=== PATIENT | female | born 1950 | race Hispanic/Latino ===

== ENCOUNTER 2018-08-20 11:41 | Emergency (ER) | payer OTHER ==
[2018-08-20] MEDS ORDERED: TETANUS/DIPHTHERIA TOXOID [ADULT] 0.5 ML VIAL IM ONE (12:09)
[2018-08-20] MEDS ORDERED: LIDOCAINE HCL MPF 1% 5ML VIAL ONE (12:09)
[2018-08-20] MEDS ORDERED: CEFAZOLIN SODIUM 1 GM VIAL ONE (13:22)
[2018-08-20] MEDS ORDERED: SODIUM CHLORIDE 0.9% 50 ML IV ONE (13:22)
== END 2018-08-20 14:45 | disposition home or self-care (01) ==
LOC: EDH 11:41
DX: S62.665B Nondisplaced fracture of distal phalanx of left ring finger, initial encounter for open fracture (principal); Z88.2 Allergy status to sulfonamides; Z90.710 Acquired absence of both cervix and uterus; X58.XXXA Exposure to other specified factors, initial encounter; Y93.89 Activity, other specified; Y92.89 Other specified places as the place of occurrence of the external cause; Y99.8 Other external cause status
CPT/HCPCS: 29130; 73140; 90471; 90714; 96365; 99284; J0690; J3490

== ENCOUNTER → 2019-06-04 | Outpatient (CLI) | payer MEDICARE | END | disposition home or self-care (01) | LOC: RAH 08:26 | PROVIDERS: ATTEND Internal Medicine | DX: Z12.31 Encounter for screening mammogram for malignant neoplasm of breast (principal) | CPT/HCPCS: 77067 ==

== ENCOUNTER → 2020-06-04 | Outpatient (CLI) | payer MEDICARE | END | disposition home or self-care (01) | LOC: RAH 08:33 | PROVIDERS: ATTEND Internal Medicine | DX: Z12.31 Encounter for screening mammogram for malignant neoplasm of breast (principal) | CPT/HCPCS: 77067 ==

== ENCOUNTER → 2021-06-10 | Outpatient (CLI) | payer MEDICARE | END | disposition home or self-care (01) | LOC: RAH 16:16 | PROVIDERS: ATTEND Internal Medicine | DX: Z12.31 Encounter for screening mammogram for malignant neoplasm of breast (principal); Z00.01 Encounter for general adult medical examination with abnormal findings | CPT/HCPCS: 77067 ==

== ENCOUNTER → 2022-06-29 | Outpatient (CLI) | payer MEDICARE | END | disposition home or self-care (01) | LOC: RAH 14:15 | PROVIDERS: ATTEND Internal Medicine | DX: Z12.31 Encounter for screening mammogram for malignant neoplasm of breast (principal) | CPT/HCPCS: 77067 ==

== ENCOUNTER → 2025-03-24 | Outpatient (CLI) | payer MEDICARE ==
--- NOTE | 2025-03-26 09:32 | HMCIMG ---
Exam Type: MAMMO DX BILATERAL, US BREAST COMPLETE UNILATERAL Clinical Information: *PT BEGAN TO FEEL SHARP PAIN TO LEFT BREAST X1MTH AGO, & NODULE DEVELPED ON LEFT AREOLAR REGION, PT IS NO LONGER FEELING PAIN/LUMP HAS DECREASED.LT BREAST US ORDERED. SPOT VIEWS TAKEN OF RT BREAST DUE TO DENSIYT NOTED SUBAREOLAR REGION *FAMILY HX OF BREAST CA: MOTHER Comparison: June 30, 2024 TECHNIQUE: Mammogram was performed with CC and MLO and ML projections. CAD was performed. CAD shows no worrisome regions. FINDINGS: The breasts are heterogeneously dense, which may obscure small masses.. No dominant mass or suspicious microcalcification identified. There is no nipple retraction or skin thickening. Benign-appearing calcifications are seen. Left breast also shows no worrisome lesions. Benign-appearing left axillary lymph nodes are seen by ultrasound. IMPRESSION: 1. No mammographic or sonographic signs of malignancy.. 2. Routine follow-up recommended. BI-RADS: CATEGORY 2: BENIGN FINDINGS Note: A negative x-ray should not delay biopsy if a dominant or clinically suspicious mass is present, since 8-10% of cancers are not identified by mammography. Dense breasts, particularly, may obscure an underlying neoplasm.
== END | disposition home or self-care (01) ==
LOC: CANPRECLI → RAH 12:51
PROVIDERS: ATTEND Internal Medicine
DX: R92.333 Mammographic heterogeneous density, bilateral breasts (principal); N63.20 Unspecified lump in the left breast, unspecified quadrant
CPT/HCPCS: 76641; 77066